=== PATIENT | female | born 1970 | race Caucasian/White ===

== ENCOUNTER 2020-10-21 08:27 | Emergency (ER) | payer BC ==
[2020-10-21] MEDS ORDERED: Aspirin 81 MG Tab.Chew ONE (08:30)
[2020-10-21] MEDS ORDERED: Nitroglycerin 0.4 MG Tab.SL ONE (08:31)
[2020-10-21] MEDS ORDERED: GI Cocktail Oral Solution 30 ML PO ONE (08:35)
[2020-10-21] MEDS ORDERED: Aspirin 81 MG Tab.Chew PO ONE (08:42)
[2020-10-21] MEDS ORDERED: Nitroglycerin 0.4 MG Tab.SL SL ONE (08:43)
[2020-10-21 09:14] LABS: CHLORIDE,CL 104 mmol/L (98-107); SODIUM,NA 140 mmol/L (136-145)
[2020-10-21] MEDS ORDERED: Sodium Chloride 0.9% 1,000 ML IV ONE (09:15)
[2020-10-21] MEDS ORDERED: Ondansetron 4 MG/2 ML SDV IVPUSH ONE (09:15)
--- NOTE | 2020-10-21 09:48 | EDM.PDOC ---
ED HPI GENERAL MEDICAL PROBLEM - General Chief Complaint: Chest Pain Stated Complaint: chest pain Time Seen by Provider: 10/21/20 08:31 Source of Information: Reports: Patient History Limitations: Reports: No Limitations - History of Present Illness INITIAL COMMENTS - FREE TEXT/NARRATIVE: Patient comes to ER complaining of chest pain that started 10-12 hours ago. Intermittent at times, but throughout latter part of night was constant. Points to right side of chest as to where it is worst. But also some left sided discomfort and reports it radiates to back also. Has been having issues with on/off chest pain for around a month. Overall unremarkable stress test/cardiac workup last week. No formal history of cardiac disease. Is a smoker. No fevers/chills. Has nausea. Food can trigger pain. Burping does not help. Taking a deep breath can exacerbate the pain. Has gained weight over holidays but says she was eating small amounts more frequently in order to avoid triggering pain. Feels a bit better sitting up when pain is present vs laying flat. Feels a bit short of breath at this time but admits that breathing is exacerbating the pain. Negative for HEENT changes. No headaches/URI complaints Resp: mild cough sometimes but denies any major changes. No sputum production. Only has the sensation of SOB when pain present GI: + for nausea when pain present. Otherwise no complaints/emesis/bowel changes. : negative for acute changes/UTI complaints MS and Neuro negative for acute changes. chest Pain Score (Numeric/FACES): 9 - Related Data Allergies Allergy/AdvReac Type Severity Reaction Status Date / Time iodine Allergy Rash Verified 10/21/20 10:18 Home Meds: Home Meds Albuterol [Take Home: Albuterol 18 GM, 1 INH Pack] 2 puff INH Q4HR PRN 10/21/20 [History] Aspirin [Children's Aspirin] 81 mg PO DAILY 10/21/20 [History] DULoxetine [Cymbalta] 60 mg PO DAILY 10/21/20 [History] Magnesium Glycinate [Magnesium Bisglycinate Chelate] 25,000 gm MC BEDTIME #1 powder 10/21/20 [Rx] Non-Formulary Medication [NF Drug] 1 tab PO DAILY 10/21/20 [History] Pramipexole [Mirapex] 1 tab PO ASDIRECTED 10/21/20 [History] SUMAtriptan [Imitrex] 25 mg PO ASDIRECTED PRN 10/21/20 [History] Varenicline Tartrate [Chantix] 1 dose PO ASDIRECTED 10/21/20 [History] Vitamin D3/Vitamin K2 (Mk4) [K2 Plus D3 Tablet] 3,000 mg PO DAILY #90 tablet 10/21/20 [Rx] Past Medical History Respiratory History: Reports: COPD Neurological History: Reports: Migraines, Other (See Below) (restless legs) Psychiatric History: Reports: Anxiety, Depression Social & Family History - Tobacco Use Tobacco Use Status *Q: Current Every Day Tobacco User Tobacco Use Comment: Patient actively is trying to quit smoking/using Chantix - Alcohol Use Alcohol Use History: No - Recreational Drug Use Recreational Drug Use: No Drug Use in Last 12 Months: No ED ROS GENERAL - Review of Systems Review Of Systems: Comprehensive ROS is negative, except as noted in HPI. ED EXAM, GENERAL - Physical Exam Exam: See Below Exam Limited By: No Limitations General Appearance: Alert, Anxious, Mild Distress, Obese Eye Exam: Bilateral Eye: EOMI, PERRL Ears: Hearing Grossly Normal Nose: No: Nasal Deformity, Nasal Swelling, Nasal Drainage Throat/Mouth: Normal Lips, Normal Voice, No Airway Compromise Head: Atraumatic, Normocephalic Neck: Supple, Non-Tender, Full Range of Motion Respiratory/Chest: No Respiratory Distress, Lungs Clear, Normal Breath Sounds, N o Accessory Muscle Use, Chest Non-Tender Cardiovascular: Regular Rate, Rhythm, No Edema, No Murmur Peripheral Pulses: 2+: Radial (L), Radial (R) GI/Abdominal: Normal Bowel Sounds, Soft, Other (tender with palpation over GB/liver in RUQ). No: Distended, Guarding, Rigid, Rebound, Tender (Female) Exam: Deferred Rectal (Female) Exam: Deferred Back Exam: Normal Inspection. No: CVA Tenderness (L), CVA Tenderness (R), Muscle Spasm, Paraspinal Tenderness, Vertebral Tenderness Extremities: Normal Inspection, Normal Capillary Refill Neurological: Alert, Oriented, Normal Cognition, Normal Gait, No Motor/Sensory Deficits Psychiatric: Normal Affect, Normal Mood Skin Exam: Warm, Dry, Intact, Normal Color #1 Interpretation EKG Date: 10/21/20 Time: 08:29 Rhythm: NSR Rate (Beats/Min): 69 [place]: Normal P-Wave: Present QRS: Normal ST-T: Normal QT: Normal Comparison: NA - No Prior EKG EKG Interpretation Comments: No obvious acute changes suggestive of acute ischemia Course - Vital Signs Last Recorded V/S: Last Vital Signs Temp 36.6 C 10/21/20 08:27 Pulse 72 10/21/20 11:15 Resp 18 10/21/20 11:15 BP 157/84 H 10/21/20 11:15 Pulse Ox 100 10/21/20 11:15 - Orders/Labs/Meds Labs: Laboratory Tests 10/21/20 10/21/20 10/21/20 Range/Units 08:25 08:25 08:25 WBC 8.1 (4.0-10.2) K/uL RBC 4.46 (3.77-5.09) M/uL Hgb 13.8 (11.7-15.5) g/dL Hct 42.1 (34.0-46.0) % MCV 94.4 (84.0-98.0) fL MCH 30.9 (28.2-33.3) pg MCHC 32.8 (31.7-36.0) g/dL RDW 14.4 H (11.2-14.1) % Plt Count 297 (150-350) K/uL Neut % (Auto) 64.0 (45.0-80.0) % Lymph % (Auto) 23.4 (10.0-50.0) % [place] % (Auto) 7.9 (2.0-14.0) % Eos % (Auto) 4.2 (0.0-5.0) % Baso % (Auto) 0.5 (0.0-2.0) % Neut # (Auto) 5.15 (1.40-7.00) K/uL Lymph # (Auto) 1.89 (0.50-3.50) K/uL [place] # (Auto) 0.64 (0.00-1.00) K/uL Eos # (Auto) 0.34 (0.00-0.50) K/uL Baso # (Auto) 0.04 (0.00-0.20) K/uL PT 9.1 L (9.5-12.0) SEC INR 0.9 APTT 25.0 (24.5-32.8) SEC D-Dimer, Quantitative (0-400) ng/mL Sodium 140 (136-145) mmol/L Potassium 3.9 (3.5-5.1) mmol/L Chloride 104 (98-107) mmol/L Carbon Dioxide 26.9 (21.0-32.0) mmol/L BUN 15 (7-18) mg/dL Creatinine 0.50 L (0.51-1.17) mg/dL Est Cr Clr Drug Dosing 135.26 mL/min Estimated GFR (MDRD) > 60 mL/min Glucose 98 (74-106) mg/dL Lactic Acid (0.4-2.0) mmol/L Calcium 8.8 (8.5-10.1) mg/dL Magnesium 1.9 (1.8-2.4) mg/dL Total Bilirubin 0.3 (0.2-1.0) mg/dL AST 15 (15-37) U/L ALT 32 (12-78) U/L Alkaline Phosphatase 87 (46-116) IU/L Creatine Kinase 54 (26-308) U/L Creatine Kinase Index 1.3 (0.0-2.5) % CK-MB (CK-2) 0.70 (0.00-3.60) ng/mL Troponin I 0.000 (0.000-0.056) ng/mL NT-Pro-B Natriuret Pep 138 H (0-125) pg/mL Total Protein 6.9 (6.4-8.2) g/dL Albumin 3.5 (3.4-5.0) g/dL Amylase 51 (25-115) U/L Lipase 140 (73-393) U/L Specimen Type Urine Color Urine Appearance Urine pH (5.0-9.0) Ur Specific [place] (1.005-1.030) Urine Protein (NEGATIVE) mg/dL Urine Glucose (UA) (NEGATIVE) mg/dL Urine Ketones (NEGATIVE) mg/dL Urine Occult Blood (NEGATIVE) Urine Nitrite (NEGATIVE) Urine Bilirubin (NEGATIVE) Urine Urobilinogen (0.2-1.0) E.U./dL Ur Leukocyte Esterase (NEGATIVE) Urine RBC /HPF Urine WBC /HPF Ur Epithelial Cells /LPF Urine Bacteria (NONE TO FEW) /HPF 10/21/20 10/21/20 10/21/20 Range/Units 08:25 08:25 09:16 WBC (4.0-10.2) K/uL RBC (3.77-5.09) M/uL Hgb (11.7-15.5) g/dL Hct (34.0-46.0) % MCV (84.0-98.0) fL MCH (28.2-33.3) pg MCHC (31.7-36.0) g/dL RDW (11.2-14.1) % Plt Count (150-350) K/uL Neut % (Auto) (45.0-80.0) % Lymph % (Auto) (10.0-50.0) % [place] % (Auto) (2.0-14.0) % Eos % (Auto) (0.0-5.0) % Baso % (Auto) (0.0-2.0) % Neut # (Auto) (1.40-7.00) K/uL Lymph # (Auto) (0.50-3.50) K/uL [place] # (Auto) (0.00-1.00) K/uL Eos # (Auto) (0.00-0.50) K/uL Baso # (Auto) (0.00-0.20) K/uL PT (9.5-12.0) SEC INR APTT (24.5-32.8) SEC D-Dimer, Quantitative 774 H (0-400) ng/mL Sodium (136-145) mmol/L Potassium (3.5-5.1) mmol/L Chloride (98-107) mmol/L Carbon Dioxide (21.0-32.0) mmol/L BUN (7-18) mg/dL Creatinine (0.51-1.17) mg/dL Est Cr Clr Drug Dosing mL/min Estimated GFR (MDRD) mL/min Glucose (74-106) mg/dL Lactic Acid 1.3 (0.4-2.0) mmol/L Calcium (8.5-10.1) mg/dL Magnesium (1.8-2.4) mg/dL Total Bilirubin (0.2-1.0) mg/dL AST (15-37) U/L ALT (12-78) U/L Alkaline Phosphatase (46-116) IU/L Creatine Kinase (26-308) U/L Creatine Kinase Index (0.0-2.5) % CK-MB (CK-2) (0.00-3.60) ng/mL Troponin I (0.000-0.056) ng/mL NT-Pro-B Natriuret Pep (0-125) pg/mL Total Protein (6.4-8.2) g/dL Albumin (3.4-5.0) g/dL Amylase (25-115) U/L Lipase (73-393) U/L Specimen Type Urinblad Urine Color Yellow Urine Appearance Clear Urine pH 7.0 (5.0-9.0) Ur Specific [place] 1.015 (1.005-1.030) Urine Protein Negative (NEGATIVE) mg/dL Urine Glucose (UA) Negative (NEGATIVE) mg/dL Urine Ketones Negative (NEGATIVE) mg/dL Urine Occult Blood Negative (NEGATIVE) Urine Nitrite Negative (NEGATIVE) Urine Bilirubin Negative (NEGATIVE) Urine Urobilinogen 0.2 (0.2-1.0) E.U./dL Ur Leukocyte Esterase Negative (NEGATIVE) Urine RBC 0-5 /HPF Urine WBC 0-5 /HPF Ur Epithelial Cells Few /LPF Urine Bacteria Few (NONE TO FEW) /HPF Meds: Medications Discontinued Medications Generic Name Dose Route Start Last Admin Trade Name Freq PRN Reason Stop Dose Admin Al Hydroxide/Mg Hydroxide 30 ml 10/21/20 08:35 10/21/20 08:42 Gi Cocktail PO 10/21/20 08:36 30 ml ONETIME ONE Administration Aspirin Confirm 10/21/20 08:30 10/21/20 08:48 Aspirin Administered 10/21/20 08:31 Not Given Dose 324 mg .ROUTE .STK-MED ONE Aspirin 324 mg 10/21/20 08:42 10/21/20 08:32 Aspirin PO 10/21/20 08:43 324 mg ONETIME ONE Administration Sodium Chloride 1,000 mls @ 999 mls/hr 10/21/20 09:15 10/21/20 09:21 Normal Saline IV 10/21/20 10:15 999 mls/hr .BOLUS ONE Administration Iopamidol 100 ml 10/21/20 13:00 10/21/20 10:30 Isovue-370 (76%) IVPUSH 10/21/20 13:01 100 ml ONETIME ONE Administration Ketorolac Tromethamine 30 mg 10/21/20 10:56 10/21/20 11:19 Toradol IVPUSH 10/21/20 10:57 30 mg ONETIME ONE Administration Nitroglycerin Confirm 10/21/20 08:31 10/21/20 09:09 Nitrostat Administered 10/21/20 08:32 Not Given Dose 0.4 mg .ROUTE .STK-MED ONE Nitroglycerin 0.4 mg 10/21/20 08:43 10/21/20 08:33 Nitrostat SL 10/21/20 08:44 0.4 mg ONETIME ONE Administration Ondansetron HCl 4 mg 10/21/20 09:15 10/21/20 09:21 Zofran IVPUSH 10/21/20 09:16 4 mg ONETIME ONE Administration Pantoprazole Sodium 40 mg 10/21/20 10:55 10/21/20 11:19 Protonix Iv IVPUSH 10/21/20 10:56 40 mg ONETIME ONE Administration Sodium Chloride 10 ml 10/21/20 11:30 10/21/20 11:20 Saline Flush FLUSH 10 ml ASDIRECTED OK Administration - Radiology Interpretation Free Text/Narrative:: Unremarkable chest xray. No obvious pneumonia/pneumothorax. CT Results Date: 10/21/20 (No PE noted. No other acute process noted. Incidental finding of nonspecific/likely reactive hilar lymph nodes and a noncalcified nodule right lower lobe) - Re-Assessments/Exams Free Text/Narrative Re-Assessment/Exam: 10/21/20 09:51 Patient received aspirin and single Nitro shortly after arrival. No change in pain per patient. She later was given a GI cocktail and pain was noted to resolve when rechecked a half hour later. Cardiac labs performed for R/O [place]. CBC/Chem/Mg/ProBPN/Trop/DDimer performed. Overall unremarkable except for minimal elevation proBNP and also some elevation in DDimer. CTA of chest ordered to r/o [place]. Given history and exam, suspect complaint could be related to gallbladder dysfunction. Amylase and Lipase requested. These were normal. BP much improved. 10/21/20 11:58 PE study negative. Patient recommended to have repeat scan within one year to recheck several incidental spots noted in lung scan. IV Toradol and Protonix given before discharge. Differential reviewed with patient. To follow up with [facility] tomorrow and discuss arrangements for possible RUQ US and/or HIDA scan for better look at gallbladder. She remains pain-free at this time. Precautions reviewed. Single bottle Tramadol sent home for PRN use. Dietary changes to avoid GI upset also reviewed prior to discharge. Patient was informed of nonspecific finding on CT of the lymph nodes and noncalcified nodule. To follow up with PCP and discuss possible referral to Lung Nodule Clinic/follow up scanning in future to re-evaluate these. Departure - Departure Time of Disposition: 11:35 Disposition: Home, Self-Care 01 Condition: Good Clinical Impression: Atypical chest pain - Discharge Information *PRESCRIPTION DRUG MONITORING PROGRAM REVIEWED*: Not Applicable *COPY OF PRESCRIPTION DRUG MONITORING REPORT IN PATIENT HARRY: Not Applicable Prescriptions: Vitamin D3/Vitamin K2 (Mk4) [K2 Plus D3 Tablet] 3,000 mg PO DAILY #90 tablet Magnesium Glycinate [Magnesium Bisglycinate Chelate] 25,000 gm MC BEDTIME #1 powder Instructions: Nonspecific Chest Pain, Adult Referrals: Meseret Mariee PA-C [Primary Care Provider] - Forms: ED Department Discharge Additional Instructions: Call [facility] tomorrow and tell them that you were in the ER today to be seen. Also tell them that you will need additional testing arranged, such as a gallbladder ultrasound or HIDA scan to look more closely at your gallbladder. Unless you have been confirmed to have Lyme via testing you may want to reconsider starting Doxy until you have figured out the chest pain/GI issue. The Doxy can cause GI problems as well as make existing ones worse. With ongoing fatigue issues it is recommended you have actual sleep study performed at medical facility as it is much more thorough evaluation of sleep problems than home tests. Diet changes as discussed highly encouraged,including terminal supervisor commitment to the changes. This may greatly help your current suspected GI issues as well as improve general wellness/energy levels, and sleep over terminal supervisor. Call us if you have questions. Return to ER if you have sudden problems. Take Tramadol one tab every 6 hours as needed for pain. You may need referral to GI clinic for more thorough GI evaluation if pain issues persist. Will need follow up of lung nodule in future/consider referral to Lung Nodule Clinic. Sepsis Event Note (ED) - Evaluation Sepsis Screening Result: No Definite Risk
[2020-10-21] MEDS ORDERED: Pantoprazole 40 MG Vial IVPUSH ONE (10:55)
[2020-10-21] MEDS ORDERED: Ketorolac 30 MG/ML SDV IVPUSH ONE (10:56)
[2020-10-21] MEDS ORDERED: Sodium Chloride 0.9% 10 ML Syringe FLUSH SCH (11:30)
[2020-10-21] MEDS ORDERED: Iopamidol 755 Mg/ML 100 ML Bottle IVPUSH ONE ×2 (13:00)
[2020-10-21 13:11] VITALS: BP 157/84; PULSE 72
== END 2020-10-21 12:02 | disposition home or self-care (01) ==
LOC: LL.ED 08:27
DX: R10.11 Right upper quadrant pain (principal); I10 Essential (primary) hypertension; R10.13 Epigastric pain; J44.9 Chronic obstructive pulmonary disease, unspecified; Z88.8 Allergy status to other drugs, medicaments and biological substances; Z79.82 Long term (current) use of aspirin; Z79.899 Other long term (current) drug therapy
CPT/HCPCS: 36415; 71045; 71275; 80053; 81001; 82150; 82550; 82553; 83605; 83690; 83735; 83880; 84484; 85025; 85379; 85610; 85730; 93005; 93010; 96374; 96375; 99284; 99285-25; A9270-GY; C9113; J1885; J2405; J7030; Q9967

== ENCOUNTER 2020-10-22 22:23 | Emergency (ER) | payer BC ==
[2020-10-22] MEDS ORDERED: Morphine 4 MG/ML Syringe IM ONE (22:51)
[2020-10-22] MEDS ORDERED: Ketorolac 60 MG/2 ML SDV IM ONE (22:51)
[2020-10-22] MEDS ORDERED: Ondansetron 4 MG Tab.DIS PO ONE (22:51)
[2020-10-22] MEDS ORDERED: GI Cocktail Oral Solution 30 ML PO ONE (22:52)
--- NOTE | 2020-10-22 23:34 | EDM.PDOC ---
ED HPI GENERAL MEDICAL PROBLEM - General Chief Complaint: Gastrointestinal Problem Stated Complaint: upper GI pain Time Seen by Provider: 10/22/20 22:30 Source of Information: Reports: Patient History Limitations: Reports: No Limitations - History of Present Illness INITIAL COMMENTS - FREE TEXT/NARRATIVE: Patient here due to pain exacerbation from suspected gallbladder disease. Was seen here yesterday for this as well as in evening last night in [place]. Has had chest CT as well as RUQ US. Is scheduled now for HIDA scan on . See yesterday's ER record for additional information. Pain usually triggered by eating. Tonight's trigger was eating [employer]. Pain started soon afterwards and is in RUQ/epigastric area. No vomiting. No fevers. No other acute changes. Upper Abdomen Pain Score (Numeric/FACES): 10 - Related Data Allergies Allergy/AdvReac Type Severity Reaction Status Date / Time iodine Allergy Rash Verified 10/22/20 22:26 Home Meds: Home Meds Albuterol [Take Home: Albuterol 18 GM, 1 INH Pack] 2 puff INH Q4HR PRN 10/21/20 [History] Aspirin [Children's Aspirin] 81 mg PO DAILY 10/21/20 [History] DULoxetine [Cymbalta] 60 mg PO DAILY 10/21/20 [History] Magnesium Glycinate [Magnesium Bisglycinate Chelate] 25,000 gm MC BEDTIME #1 powder 10/21/20 [Rx] Non-Formulary Medication [NF Drug] 1 tab PO DAILY 10/21/20 [History] Pramipexole [Mirapex] 1 tab PO ASDIRECTED 10/21/20 [History] SUMAtriptan [Imitrex] 25 mg PO ASDIRECTED PRN 10/21/20 [History] Varenicline Tartrate [Chantix] 1 dose PO ASDIRECTED 10/21/20 [History] Vitamin D3/Vitamin K2 (Mk4) [K2 Plus D3 Tablet] 3,000 mg PO DAILY #90 tablet 10/21/20 [Rx] Hydrocodone/Acetaminophen [Hydrocodone-Acetamin 10-325 mg] 1 tab PO Q6H PRN 10/22/20 [History] Past Medical History HEENT History: Reports: Impaired Vision Cardiovascular History: Reports: Hypertension, Other (See Below) Other Cardiovascular History: recent chest pain with Stress completed on 10/18/20 Respiratory History: Reports: COPD Gastrointestinal History: Reports: Hiatal Hernia, Other (See Below) (suspected gallbladder disease) Genitourinary History: Reports: Other (See Below) Other Genitourinary History: hx of UTI THERAPIST History: Reports: Neurological History: Reports: Migraines, Other (See Below) Other Neuro History: restless legs Psychiatric History: Reports: Anxiety, Depression Social & Family History - Caffeine Use Caffeine Use: Reports: Coffee ED ROS GENERAL - Review of Systems Review Of Systems: Comprehensive ROS is negative, except as noted in HPI. ED EXAM, GENERAL - Physical Exam Exam: See Below General Appearance: Alert, Moderate Distress, Obese Eye Exam: Bilateral Eye: EOMI, PERRL Ears: Hearing Grossly Normal Nose: No: Nasal Deformity, Nasal Swelling, Nasal Drainage Throat/Mouth: Normal Lips, Normal Voice, No Airway Compromise Head: Atraumatic, Normocephalic Neck: Supple, Non-Tender, Full Range of Motion Respiratory/Chest: No Respiratory Distress, Lungs Clear, Normal Breath Sounds, No Accessory Muscle Use, Chest Non-Tender Cardiovascular: Regular Rate, Rhythm, No Murmur GI/Abdominal: Normal Bowel Sounds, Soft, Tender (epigastric and RUQ area). No: Guarding, Rigid, Rebound (Female) Exam: Deferred Rectal (Female) Exam: Deferred Back Exam: No: Muscle Spasm Extremities: Normal Range of Motion, Normal Capillary Refill Neurological: Alert, Oriented, Normal Cognition, Normal Gait, No Motor/Sensory Deficits Psychiatric: Anxious Skin Exam: Warm, Intact, Normal Color Course - Vital Signs Last Recorded V/S: Last Vital Signs Temp 36.2 C 10/22/20 22:31 Pulse 75 10/22/20 22:31 Resp 12 10/22/20 22:31 BP 187/112 H 10/22/20 22:31 Pulse Ox 100 10/22/20 22:31 - Orders/Labs/Meds Meds: Medications Discontinued Medications Generic Name Dose Route Start Last Admin Trade Name Freq PRN Reason Stop Dose Admin Al Hydroxide/Mg Hydroxide 30 ml 10/22/20 22:52 10/22/20 23:11 Gi Cocktail PO 10/22/20 22:53 30 ml ONETIME ONE Administration Ketorolac Tromethamine 60 mg 10/22/20 22:51 10/22/20 23:07 Toradol IM 10/22/20 22:52 60 mg ONETIME ONE Administration Morphine Sulfate 4 mg 10/22/20 22:51 10/22/20 23:07 Morphine IM 10/22/20 22:52 4 mg ONETIME ONE Administration Ondansetron HCl 4 mg 10/22/20 22:51 10/22/20 23:06 Zofran Odt PO 10/22/20 22:52 4 mg ONETIME ONE Administration - Re-Assessments/Exams Free Text/Narrative Re-Assessment/Exam: 10/22/20 23:29 Patient has had extensive work for this yesterday at our facility and at [place]. Has follow up plan in place. Goal for now is acute pain control. We went over dietary concerns in suspected gallbladder disease situations and confirmed that Aneudy Jin are not on the GB diet list. Given the amount of discomfort she has had over the past few days, recommend clear liquid diet for several days and to then advance as tolerated to gallbladder friendly foods. Patient agreeable with suggestions. To follow up otherwise as needed. 10/22/20 23:34 Patient pain free at this time. BP improved Departure - Departure Time of Disposition: 23:34 Disposition: Home, Self-Care 01 Condition: Good Clinical Impression: RUQ abdominal pain Hypertension Qualifiers: Hypertension type: essential hypertension Qualified Code(s): I10 - Essential (primary) hypertension - Discharge Information *PRESCRIPTION DRUG MONITORING PROGRAM REVIEWED*: Not Applicable *COPY OF PRESCRIPTION DRUG MONITORING REPORT IN PATIENT HARRY: Not Applicable Forms: ED Department Discharge Additional Instructions: Do not eat crap. Crap will make pain return. Recommend clear liquid diet for 2-3 days. Then try to advance diet as tolerated eating gallbladder friendly foods. See list you were given. Continue follow up planning with your primary provider/GI/surgery if needed depending on HIDA scan results. Follow up otherwise as needed for acute sudden worsening. Continue to monitor blood pressure trends. You may need dose adjustment if is elevated even when pain-free. Sepsis Event Note (ED) - Evaluation Sepsis Screening Result: No Definite Risk - Focused Exam Vital Signs: Vital Signs Temp Pulse Resp BP Pulse Ox 10/22/20 22:31 36.2 C 75 12 187/112 H 100
[2020-10-23 02:52] VITALS: BP 162/88; PULSE 70
== END 2020-10-22 23:46 | disposition home or self-care (01) ==
LOC: LL.ED 22:23
DX: R10.11 Right upper quadrant pain (principal); I10 Essential (primary) hypertension; R10.13 Epigastric pain; J44.9 Chronic obstructive pulmonary disease, unspecified; E66.9 Obesity, unspecified; Z68.31 Body mass index [BMI] 31.0-31.9, adult; Z88.8 Allergy status to other drugs, medicaments and biological substances; Z79.82 Long term (current) use of aspirin; Z79.899 Other long term (current) drug therapy
CPT/HCPCS: 96372; 99283; A9270-GY; J1885; J2270

== ENCOUNTER 2021-06-15 19:19 | Emergency (ER) | payer SELFPAY ==
[2021-06-15 19:25] VITALS: PULSE 75
[2021-06-15] MEDS: Ondansetron 4 MG Tab.DIS PO ONE (20:10)
[2021-06-15 20:28] VITALS: BP 142/93
--- NOTE | 2021-06-15 20:39 | EDM.PDOC ---
ED HPI GENERAL MEDICAL PROBLEM - General Chief Complaint: General Stated Complaint: COUGH/CHILLS/DOLAN/NAUSEA Time Seen by Provider: 06/15/21 19:38 Source of Information: Reports: Patient History Limitations: Reports: No Limitations - History of Present Illness INITIAL COMMENTS - FREE TEXT/NARRATIVE: Patient comes to ER with complaints of severe fatigue, cough with chest heaviness, body aches, nausea, hot/chills/sweats/sinus congestion/headache present since last night. No vomiting/diarrhea. No sore throat/runny nose. No rashes. No specific fever. Decreased appetite. No other new pain complaint. No SOB. Did have have J&J vaccine early March. No one else sick at home. No other acute changes. Has tried OTC pain relievers with no real help. - Related Data Allergies Allergy/AdvReac Type Severity Reaction Status Date / Time iodine Allergy Rash Verified 06/15/21 19:25 Home Meds: Home Meds Albuterol [Take Home: Albuterol 18 GM, 1 INH Pack] 2 puff INH Q4HR PRN 10/21/20 [History] DULoxetine [Cymbalta] 60 mg PO DAILY 10/21/20 [History] Non-Formulary Medication [NF Drug] 1 tab PO DAILY 10/21/20 [History] Pramipexole [Mirapex] 1 tab PO ASDIRECTED 10/21/20 [History] SUMAtriptan [Imitrex] 25 mg PO ASDIRECTED PRN 10/21/20 [History] Vitamin D3/Vitamin K2 (Mk4) [K2 Plus D3 Tablet] 3,000 mg PO DAILY #90 tablet 10/21/20 [Rx] Albuterol/Ipratropium [DuoNeb 3.0-0.5 MG/3 ML] 3 ml IH Q6H PRN 06/15/21 [History] DULoxetine [Cymbalta] 30 mg PO DAILY 06/15/21 [History] Metoprolol Succinate 250 mg PO DAILY 06/15/21 [History] Omeprazole 40 mg PO BIDAC 06/15/21 [History] amLODIPine Besylate [Amlodipine Besylate] 10 mg PO DAILY 06/15/21 [History] hydroCHLOROthiazide [Hydrochlorothiazide] 25 mg PO DAILY 06/15/21 [History] lisinopriL [Lisinopril] 10 mg PO DAILY 06/15/21 [History] Past Medical History HEENT History: Reports: Impaired Vision Cardiovascular History: Reports: Hypertension, Other (See Below) Other Cardiovascular History: recent chest pain with Stress completed on 10/18/20 Respiratory History: Reports: COPD Gastrointestinal History: Reports: Hiatal Hernia, Other (See Below) (suspected gallbladder disease) Genitourinary History: Reports: Other (See Below) Other Genitourinary History: hx of UTI HOSPITAL NURSE LIAISON History: Reports: Neurological History: Reports: Migraines, Other (See Below) Other Neuro History: restless legs Psychiatric History: Reports: Anxiety, Depression Social & Family History - Tobacco Use Tobacco Use Status *Q: Current Every Day Tobacco User - Caffeine Use Caffeine Use: Reports: Coffee ED ROS GENERAL - Review of Systems Review Of Systems: See Below Constitutional: Reports: Chills, Malaise, Fatigue, Diaphoresis, Decreased Appetite HEENT: Reports: Sinus Problem. Denies: Ear Pain, Rhinitis, Throat Pain, Vertigo Respiratory: Reports: Cough. Denies: Shortness of Breath, Wheezing, Pleuritic Chest Pain, Sputum, Hemoptysis Cardiovascular: Denies: Chest Pain, Dyspnea on Exertion, Edema, Lightheadedness, Palpitations, Syncope GI/Abdominal: Reports: Decreased Appetite, Nausea. Denies: Abdominal Pain, Constipation, Diarrhea, Difficulty Swallowing, Distension, Vomiting : Reports: No Symptoms Musculoskeletal: Reports: Muscle Pain Skin: Reports: No Symptoms Neurological: Reports: Headache. Denies: Confusion, Dizziness, Trouble Speaking, Difficulty Walking, Weakness, Change in Speech, Gait Disturbance Psychiatric: Reports: No Symptoms Hematologic/Lymphatic: Reports: No Symptoms ED EXAM, GENERAL - Physical Exam Exam: See Below Exam Limited By: No Limitations General Appearance: Alert, WD/WN, No Apparent Distress Eye Exam: Bilateral Eye: EOMI, PERRL Ears: Normal External Exam, Hearing Grossly Normal Nose: No: Nasal Deformity, Nasal Swelling, Nasal Drainage Throat/Mouth: Normal Lips, Normal Voice, No Airway Compromise Head: Atraumatic, Normocephalic Neck: Normal Inspection, Supple, Non-Tender, Full Range of Motion. No: Lymphadenopathy (L), Lymphadenopathy (R) Respiratory/Chest: No Respiratory Distress, Lungs Clear, Normal Breath Sounds, No Accessory Muscle Use, Chest Non-Tender Cardiovascular: Normal Peripheral Pulses, Regular Rate, Rhythm, No Edema, No Murmur GI/Abdominal: Soft, Non-Tender, No Distention (Female) Exam: Deferred Rectal (Female) Exam: Deferred Back Exam: No: CVA Tenderness (L), CVA Tenderness (R), Muscle Spasm, Paraspinal Tenderness, Vertebral Tenderness Neurological: Alert, Oriented, Normal Cognition, No Motor/Sensory Deficits Psychiatric: Normal Affect, Normal Mood Skin Exam: Warm, Dry, Intact, Normal Color Course - Vital Signs Last Recorded V/S: Last Vital Signs Temp 37.0 C 06/15/21 19:21 Pulse 75 06/15/21 19:21 Resp 18 06/15/21 19:21 BP 142/93 H 06/15/21 20:28 Pulse Ox 96 06/15/21 19:21 - Orders/Labs/Meds Orders: Active Orders 24 hr Category Date Time Status Chest 1V Frontal [CR] Stat Exams 06/15/21 19:36 Taken Isolation [COMM] Routine Oth 06/15/21 19:37 Active Labs: Laboratory Tests 06/15/21 06/15/21 06/15/21 Range/Units 20:15 20:25 20:25 WBC 13.8 H (4.0-10.2) K/uL RBC 4.46 (3.77-5.09) M/uL Hgb 13.9 (11.7-15.5) g/dL Hct 41.4 (34.0-46.0) % MCV 92.8 (84.0-98.0) fL MCH 31.2 (28.2-33.3) pg MCHC 33.6 (31.7-36.0) g/dL RDW 15.1 H (11.2-14.1) % Plt Count 348 (150-350) K/uL Neut % (Auto) 64.2 (45.0-80.0) % Lymph % (Auto) 25.6 (10.0-50.0) % Russell % (Auto) 5.4 (2.0-14.0) % Eos % (Auto) 4.2 (0.0-5.0) % Baso % (Auto) 0.6 (0.0-2.0) % Neut # (Auto) 8.84 H (1.40-7.00) K/uL Lymph # (Auto) 3.53 H (0.50-3.50) K/uL Russell # (Auto) 0.75 (0.00-1.00) K/uL Eos # (Auto) 0.58 H (0.00-0.50) K/uL Baso # (Auto) 0.08 (0.00-0.20) K/uL Sodium 141 (136-145) mmol/L Potassium 3.9 (3.5-5.1) mmol/L Chloride 107 (98-107) mmol/L Carbon Dioxide 25.0 (21.0-32.0) mmol/L Anion Gap 9.0 (7-15) meq/L BUN 13 (7-18) mg/dL Creatinine 0.64 (0.51-1.17) mg/dL Est Cr Clr Drug Dosing 88.93 mL/min Estimated GFR (MDRD) > 60 mL/min Glucose 87 (70-99) mg/dL Lactic Acid (0.4-2.0) mmol/L Calcium 8.7 (8.5-10.1) mg/dL Magnesium 2.1 (1.8-2.4) mg/dL Total Bilirubin 0.3 (0.2-1.0) mg/dL AST 15 (15-37) U/L ALT 28 (12-78) U/L Alkaline Phosphatase 86 (46-116) IU/L Total Protein 6.8 (6.4-8.2) g/dL Albumin 3.6 (3.4-5.0) g/dL Specimen Type Urine Color Urine Appearance Urine pH (5.0-9.0) Ur Specific [place] (1.005-1.030) Urine Protein (NEGATIVE) mg/dL Urine Glucose (UA) (NEGATIVE) mg/dL Urine Ketones (NEGATIVE) mg/dL Urine Occult Blood (NEGATIVE) Urine Nitrite (NEGATIVE) Urine Bilirubin (NEGATIVE) Urine Urobilinogen (0.2-1.0) E.U./dL Ur Leukocyte Esterase (NEGATIVE) Urine RBC /HPF Urine WBC /HPF Ur Epithelial Cells /LPF Amorphous Sediment (0/HPF) /HPF SARS-CoV-2 RNA (BLANCA) Negative (NEGATIVE) 06/15/21 06/15/21 Range/Units 20:25 21:00 WBC (4.0-10.2) K/uL RBC (3.77-5.09) M/uL Hgb (11.7-15.5) g/dL Hct (34.0-46.0) % MCV (84.0-98.0) fL MCH (28.2-33.3) pg MCHC (31.7-36.0) g/dL RDW (11.2-14.1) % Plt Count (150-350) K/uL Neut % (Auto) (45.0-80.0) % Lymph % (Auto) (10.0-50.0) % Russell % (Auto) (2.0-14.0) % Eos % (Auto) (0.0-5.0) % Baso % (Auto) (0.0-2.0) % Neut # (Auto) (1.40-7.00) K/uL Lymph # (Auto) (0.50-3.50) K/uL Russell # (Auto) (0.00-1.00) K/uL Eos # (Auto) (0.00-0.50) K/uL Baso # (Auto) (0.00-0.20) K/uL Sodium (136-145) mmol/L Potassium (3.5-5.1) mmol/L Chloride (98-107) mmol/L Carbon Dioxide (21.0-32.0) mmol/L Anion Gap (7-15) meq/L BUN (7-18) mg/dL Creatinine (0.51-1.17) mg/dL Est Cr Clr Drug Dosing mL/min Estimated GFR (MDRD) mL/min Glucose (70-99) mg/dL Lactic Acid 0.9 (0.4-2.0) mmol/L Calcium (8.5-10.1) mg/dL Magnesium (1.8-2.4) mg/dL Total Bilirubin (0.2-1.0) mg/dL AST (15-37) U/L ALT (12-78) U/L Alkaline Phosphatase (46-116) IU/L Total Protein (6.4-8.2) g/dL Albumin (3.4-5.0) g/dL Specimen Type Urinblad Urine Color Yellow Urine Appearance Slightly cloudy Urine pH 7.0 (5.0-9.0) Ur Specific [place] 1.025 (1.005-1.030) Urine Protein Negative (NEGATIVE) mg/dL Urine Glucose (UA) Negative (NEGATIVE) mg/dL Urine Ketones Negative (NEGATIVE) mg/dL Urine Occult Blood Negative (NEGATIVE) Urine Nitrite Negative (NEGATIVE) Urine Bilirubin Negative (NEGATIVE) Urine Urobilinogen 0.2 (0.2-1.0) E.U./dL Ur Leukocyte Esterase Negative (NEGATIVE) Urine RBC 0-5 /HPF Urine WBC 0-5 /HPF Ur Epithelial Cells Moderate H /LPF Amorphous Sediment Moderate H (0/HPF) /HPF SARS-CoV-2 RNA (BLANCA) (NEGATIVE) Meds: Medications Discontinued Medications Generic Name Dose Route Start Last Admin Trade Name Freq PRN Reason Stop Dose Admin Sodium Chloride 1,000 mls @ 999 mls/hr 06/15/21 21:00 06/15/21 21:10 Normal Saline IV 06/15/21 22:00 999 mls/hr .BOLUS ONE Administration Ketorolac Tromethamine 30 mg 06/15/21 20:59 06/15/21 21:27 Ketorolac 30 Mg/Ml Sdv IVPUSH 06/15/21 21:00 30 mg ONETIME ONE Administration Ondansetron HCl 4 mg 06/15/21 19:35 06/15/21 20:10 Ondansetron 4 Mg Tab.Dis PO 06/15/21 19:36 4 mg ONETIME ONE Administration - Re-Assessments/Exams Free Text/Narrative Re-Assessment/Exam: 06/15/21 20:45 Labs ordered, including Covid and Influenza testing. IV NS bolus. Chest xray. Vital signs stable but BP elevated. Patient reported she had not taken her BP meds earlier today due to nausea. She was given Zofran and was able to take meds. BP currently improving. 06/15/21 21:47 WBC 13.8 with some elevation of Neutrophils/lymphocytes/eosinophils. Chemistry and UA overall unremarkable. No focal consolidation on chest xray. May be some early changes reflecting viral respiratory illness/pending formal Radiology review. Influenza and Covid negative. Given the sudden symptoms of sinus congestion/cough/body aches/nausea/fatigue this does appear to be consistent with an acute viral infection. Patient has inhaler at home for PRN use for cough. Will send home with Zofran ODT for prn use. Recommend that patient continue to observe for changes over the next few days. Consider retesting for Covid on Thursday. To follow up otherwise as needed PRN sudden worsening. Departure - Departure Time of Disposition: 22:40 Disposition: Home, Self-Care 01 Condition: Good Clinical Impression: Viral illness - Discharge Information *PRESCRIPTION DRUG MONITORING PROGRAM REVIEWED*: Not Applicable *COPY OF PRESCRIPTION DRUG MONITORING REPORT IN PATIENT HARRY: Not Applicable Referrals: Meseret Mariee PA-C [Primary Care Provider] - Forms: ED Department Discharge Additional Instructions: Your Covid test and Influenza tests were negative tonight. For now you need to stay home/rest and try to stay hydrated. Ibuprofen/Tylenol for pain. Use your inhaler 1-2 puffs every 4 hours to help with cough. We are sending you home with Zofran. Take one of those every 6-8 hours to help with nausea. Would recommend self quarantining to be safe, as we may have gotten a false negative test today. Recommend getting retested in 2-3 days. Additional planning as needed at that time, depending on outcome of second test. Watch for changes/new symptoms. This does appear to be a viral illness based on the variety of symptoms you are currently experiencing. Follow up in ER for recheck if you are having worsening issues, such as shortness of breath. Otherwi se follow up as needed with your clinic. Sepsis Event Note (ED) - Focused Exam Vital Signs: Vital Signs Temp Pulse Resp BP Pulse Ox 06/15/21 20:28 142/93 H 06/15/21 19:21 37.0 C 75 18 147/98 H 96 - My Orders Last 24 Hours: My Active Orders 06/15/21 19:36 Chest 1V Frontal [CR] Stat 06/15/21 19:37 Isolation [COMM] Routine - Assessment/Plan Last 24 Hours: My Active Orders 06/15/21 19:36 Chest 1V Frontal [CR] Stat 06/15/21 19:37 Isolation [COMM] Routine
[2021-06-15 20:54] LABS: CHLORIDE,CL 107 mmol/L (98-107); SODIUM,NA 141 mmol/L (136-145)
[2021-06-15] MEDS: Sodium Chloride 0.9% 1,000 ML IV ONE (21:10)
[2021-06-15] MEDS: Ketorolac 30 MG/ML SDV IVPUSH ONE (21:27)
== END 2021-06-15 22:40 | disposition home or self-care (01) ==
LOC: LL.ED 19:19
DX: B34.9 Viral infection, unspecified (principal); I10 Essential (primary) hypertension; J44.9 Chronic obstructive pulmonary disease, unspecified; Z72.0 Tobacco use; Z88.8 Allergy status to other drugs, medicaments and biological substances; Z79.899 Other long term (current) drug therapy; Z20.822 Contact with and (suspected) exposure to COVID-19
CPT/HCPCS: 36415; 71045; 80053; 81001; 83605; 83735; 85025; 87804; 96374; 99283; 99283-25; A9270-GY; J1885; J7030; U0002

== ENCOUNTER 2024-08-25 07:30 | Day surgery (SDC) | payer BC, OTHER ==
[~2024-08-25 07:30] MED LIST: Sodium Chloride 0.9% 10 ML Syringe FLUSH PRN
[2024-08-25] MEDS ORDERED: Propofol 200 MG/20 ML SDV ONE ×2 (07:49→09:24)
[2024-08-25] MEDS: Lactated Ringers 1,000 ML IV SCH (08:10)
[2024-08-25 09:40] VITALS: BP 132/87; PULSE 65
== END 2024-08-25 10:14 | disposition home or self-care (01) ==
LOC: LL.SDS 07:30
PROVIDERS: ATTEND Surgery
DX: Z12.11 Encounter for screening for malignant neoplasm of colon (principal); K63.5 Polyp of colon; I10 Essential (primary) hypertension; K21.9 Gastro-esophageal reflux disease without esophagitis; Z79.899 Other long term (current) drug therapy
CPT/HCPCS: 00811; 45380; J2704; J7120

== ENCOUNTER 2025-05-06 17:29 | Emergency (ER) | payer BC, OTHER ==
[2025-05-06] MEDS: Lactated Ringers 1,000 ML IV ONE (17:55)
[2025-05-06] MEDS ORDERED: Sodium Chloride 0.9% 10 ML Syringe FLUSH PRN (17:59)
[2025-05-06 18:09] LABS: BASOPHILS ABSOLUTE AUTO 0.07 K/uL (0.00-0.20); BASOPHILS PERCENT AUTO 0.4 % (0.0-2.0); EOSINOPHILS ABSOLUTE AUTO 0.34 K/uL (0.00-0.50); EOSINOPHILS PERCENT AUTO 2.0 % (0.0-5.0); IMMATURE GRAN ABSOLUTE AUTO 0.15 10^3/uL (0.00-0.04); IMMATURE GRAN PERCENT AUTO 0.9 % (0.0-0.4); LYMPHOCYTES ABSOLUTE AUTO 3.30 K/uL (0.50-3.50); LYMPHOCYTES PERCENT AUTO 19.0 % (10.0-50.0); MONOCYTES ABSOLUTE AUTO 0.30 K/uL (0.00-1.00); MONOCYTES PERCENT AUTO 1.7 % (2.0-14.0); NEUTROPHILS ABSOLUTE AUTO 13.24 K/uL (1.40-7.00); NEUTROPHILS PERCENT AUTO 76.0 % (45.0-80.0); PLATELET COUNT,PLT 417 K/uL (150-350); RED BLOOD CELL COUNT 5.98 M/uL (3.77-5.09); RED CELL DISTRIBUTION WIDTH 13.2 % (11.2-14.1); WHITE BLOOD CELL COUNT,WBC 17.4 K/uL (4.0-10.2)
[2025-05-06] MEDS: methylPREDNISolone Sodium Succinate 40 MG/1 ML SDV IVPUSH ONE (18:19)
[2025-05-06 18:21] LABS: ALANINE AMINOTRANSFERASE,ALT 35 U/L (12-78); ASPARTATE AMNIOTRANSFERASE,AST 25 U/L (15-37); BILIRUBIN TOTAL 0.7 mg/dL (0.2-1.0); BLOOD UREA NITROGEN,BUN 33 mg/dL (7-18); CARBON DIOXIDE,CO2 19.0 mmol/L (21.0-32.0); CHLORIDE,CL 98 mmol/L (98-107); CREATININE 2.48 mg/dL (0.51-1.17); ESTIMATED GFR 23 mL/min (>=60); GLUCOSE RANDOM 197 mg/dL (70-99); POTASSIUM,K 3.6 mmol/L (3.5-5.1); PROTEIN TOTAL,TP 6.5 g/dL (6.4-8.2); SODIUM,NA 133 mmol/L (136-145)
[2025-05-06 18:22] LABS: ETHANOL BLOOD MEDICAL < 0.000 g/dL (0.000-0.080)
[2025-05-06 21:00] LABS: APPEARANCE,URINE CLEAR; GLUCOSE,URINE NEGATIVE (NEGATIVE); OCCULT BLOOD,URINE NEGATIVE (NEGATIVE)
[2025-05-06 21:26] LABS: AMPHETAMINES SCREEN, URINE NEGATIVE (NEGATIVE); COCAINE METABOLITES,URINE NEGATIVE (NEGATIVE); EDDP,URINE SCREEN NEGATIVE (NEGATIVE); METHAMPHETAMINES SCREEN, URINE NEGATIVE (NEGATIVE); TCA SCREEN,URINE NEGATIVE (NEGATIVE); THC SCREEN,URINE 50 NG/ML NEGATIVE (NEGATIVE)
[2025-05-06 21:28] LABS: BLOOD UREA NITROGEN,BUN 34 mg/dL (7-18); CARBON DIOXIDE,CO2 23.4 mmol/L (21.0-32.0); CHLORIDE,CL 102 mmol/L (98-107); CREATININE 1.96 mg/dL (0.51-1.17); GLUCOSE RANDOM 107 mg/dL (70-99); POTASSIUM,K 3.1 mmol/L (3.5-5.1); SODIUM,NA 135 mmol/L (136-145)
[2025-05-06 21:29] LABS: ESTIMATED GFR 30 mL/min (>=60)
[2025-05-06 21:34] LABS: BUPRENORPHINE SCREEN,URINE NEGATIVE (NEGATIVE); OXYCODONE SCREEN,URINE NEGATIVE (NEGATIVE)
[2025-05-06 21:47] VITALS: BP 109/75; PULSE 72
[2025-05-06] MEDS: Potassium Chloride 20 MEQ Tab.ER PO ONE (21:50)
[2025-05-06] MEDS: Potassium Chloride 10 MEQ Tab.ER PO ONE (21:57)
== END 2025-05-06 22:50 | disposition home or self-care (01) ==
LOC: LL.ED 17:29
DX: T67.9XXA Effect of heat and light, unspecified, initial encounter (principal); E86.0 Dehydration; I10 Essential (primary) hypertension; K21.9 Gastro-esophageal reflux disease without esophagitis; E78.00 Pure hypercholesterolemia, unspecified; E66.9 Obesity, unspecified; Z91.041 Radiographic dye allergy status; Z79.899 Other long term (current) drug therapy; Z90.710 Acquired absence of both cervix and uterus
CPT/HCPCS: 36415; 80048; 80053; 80305-QW; 80307; 81001; 83605; 83735; 84484; 85025; 93005; 96361; 96374; 99285-25; A9270-GY; J2919; J7030; J7120